=== PATIENT | female | born 1990 | race Hispanic/Latino ===

== ENCOUNTER 2023-05-11 19:21 | Emergency (ER) | payer MEDICAID, OTHER | END 2023-05-11 20:38 | disposition home or self-care (01) | LOC: ERS 19:21 | DX: H65.92 Unspecified nonsuppurative otitis media, left ear (principal); H73.92 Unspecified disorder of tympanic membrane, left ear; E11.9 Type 2 diabetes mellitus without complications; I10 Essential (primary) hypertension; Z79.84 Long term (current) use of oral hypoglycemic drugs | CPT/HCPCS: 99282 ==